=== PATIENT | male | born 1955 | race Caucasian/White ===

== ENCOUNTER 2020-10-08 09:53 | Day surgery (SDC) | payer OTHER, SELFPAY ==
[2020-10-03 11:03] VITALS: BMI 28.5
[2020-10-08 10:16] VITALS: BP 137/88; PULSE 80; RESP 16; TEMP 36.4; O2SAT 98
[2020-10-08 10:25] LABS: Glucose, Whole Blood 160 mg/dL (60-115)
[2020-10-08] MEDS: Lactated Ringers 1,000 ML 100 ML IVCONT (10:45)
--- NOTE | 2020-10-08 10:55 | HO.ANESPROP2 ---
HPI - Anesthesia Eval Consult details Narrative: 65yo male patient for colonoscopy FORMERLY [facility] Past Medical History Medical History CAD (coronary artery disease) Diabetic foot ulcer History of amputation of toe HTN (hypertension) Hyperlipidemia Nephrolithiasis Osteoarthritis PVD (peripheral vascular disease) Type II diabetes mellitus Family History Family history of problems with anesthesia: No Surgical History Surgical History History of cystoscopy History of lithotripsy Hx of colonoscopy History of Problems with Anesthesia: No Social History Social History Advance Directives: No Advance Directives Information Provided: No Advance Directives on File: No Recently lost weight without trying: No Eating poorly because of decreased appetite: No Nutrition Risks: No Nutritional Risk Meds Allergies Allergy/AdvReac Type Severity Reaction Status Date / Time sucralose Allergy Severe DISORIENTAT Verified 10/08/20 10:32 [From SPLENDA (SUCRALOSE)] ION Home Medications Medication Instructions Recorded Confirmed Last Taken Type Lantus U-100 Insulin 10/03/20 Unknown History Tylenol 10/03/20 10/03/20 Unknown History amlodipine 5 mg PO DAILY 10/03/20 10/03/20 Unknown History digestive enzymes (plant) [Lipase mg PO 10/03/20 Unknown History Concentrate-HP] glipizide 5 mg PO DAILY 10/03/20 10/03/20 Unknown History lisinopril 10 mg PO DAILY 10/03/20 10/03/20 Unknown History Exam Exam Date and Time: October 08, 2020 1055 Height,Weight and Vital Signs: Height 6 ft 1 in Weight 97.976 kg Last Vital Signs Temp 97.5 F 10/08/20 10:16 Pulse 80 10/08/20 10:16 Resp 16 10/08/20 10:16 BP 137/88 10/08/20 10:16 Pulse Ox 98 10/08/20 10:16 Pertinent Lab Results Pertinent Lab Results: Laboratory Tests 10/08/20 10:16 POC Glucose 160 H Assessment and Plan Assessment Anesthesia Assessment: Anesthesia Plan Discussed and Chart Reviewed Final Anesthetic Review NPO: Yes ASA Class: III Final Preanesthetic Review: No Changes in Pt Med Stat, Meds/Allgs Chart Reviewed, Consent Obtained/Reviewed and Anes Risks/Benef Reviewed Patient Risk: Intermediate Procedure Risk: Low Assessment/Block/Sedation in SS: Assess/Block/Sedation-SS Anesthetic Plan Anesthetic Plan: MAC: Disposition: Standard PACU
--- NOTE | 2020-10-08 10:58 | MHC.SHP ---
Pre-Procedural Eval Section B Chief Complaint: screening Details of Present Illness: screening Relevant Family History (Specify if Yes): No Relevant Social History: None Present Medications: see Short Stay Collaborative assessment Medical History: No relevant PMH (see h&p) History of Previous Operations: No relevant previous surgery (see h&p) Allergies: Allergies Allergy/AdvReac Type Severity Reaction Status Date / Time sucralose Allergy Severe DISORIENTAT Verified 10/08/20 10:32 [From SPLENDA (SUCRALOSE)] ION Review of Systems Sugical H&P ROS: Negative: Constitution, Cardiovascular, Respiratory, Neurological, Psychiatric, Hem-Onc, Allergic/Immunologic, Gastrointestinal, Genitourinary, Musculoskeletal, Integumentary, Endocrine and Eyes/Ears/Nose/Throat Exam Surgical H&P Exam: Normal: HEENT, Normal: Heart, Normal: Lungs, Normal: Extremities, Normal: Abdomen, Normal: Skin and Normal: Neurological Plan Diagnosis/Plan: Unchanged I have reviewed the history and physical and performed a pertinent physical examination on my patient. No changes have occurred unless specified.
--- NOTE | 2020-10-08 11:28 | P.CONAN_ITS ---
HPI - Anesthesia Eval Consult details Narrative: 65 yo male patient for colonoscopy FORMERLY [facility] Past Medical History Medical History CAD (coronary artery disease) Diabetic foot ulcer History of amputation of toe HTN (hypertension) Hyperlipidemia Nephrolithiasis Osteoarthritis PVD (peripheral vascular disease) Type II diabetes mellitus Family History Family history of problems with anesthesia: No Surgical History Surgical History History of cystoscopy History of lithotripsy Hx of colonoscopy History of Problems with Anesthesia: No Social History Social History Advance Directives: No Advance Directives Information Provided: No Advance Directives on File: No Recently lost weight without trying: No Eating poorly because of decreased appetite: No Nutrition Risks: No Nutritional Risk Meds Allergies Allergy/AdvReac Type Severity Reaction Status Date / Time sucralose Allergy Severe DISORIENTAT Verified 10/08/20 10:32 [From SPLENDA (SUCRALOSE)] ION Active Medications: Current Medications Generic Name Dose Route Start Last Admin Trade Name Freq PRN Reason Stop Dose Admin Lactated Ringer's 1,000 mls @ 100 mls/hr 10/08/20 11:00 10/08/20 10:45 Lr IVCONT 100 mls/hr .Q10H ANNA Administration Ondansetron HCl 4 mg 10/08/20 11:23 Ondansetron Hcl 4 Mg/2 Ml Vial IVPUSH ONCE PRN Nausea and Vomiting Home Medications Medication Instructions Recorded Confirmed Last Taken Type Lantus U-100 Insulin 10/03/20 Unknown History Tylenol 10/03/20 10/03/20 Unknown History amlodipine 5 mg PO DAILY 10/03/20 10/03/20 Unknown History digestive enzymes (plant) [Lipase mg PO 10/03/20 Unknown History Concentrate-HP] glipizide 5 mg PO DAILY 10/03/20 10/03/20 Unknown History lisinopril 10 mg PO DAILY 10/03/20 10/03/20 Unknown History Exam Exam Date and Time: October 08, 2020 1128 Height,Weight and Vital Signs: Height 6 ft 1 in Weight 97.976 kg Last Vital Signs Temp 97.5 F 10/08/20 10:16 Pulse 80 10/08/20 10:16 Resp 16 10/08/20 10:16 BP 137/88 10/08/20 10:16 Pulse Ox 98 10/08/20 10:16 Pertinent Lab Results Pertinent Lab Results: Laboratory Tests 10/08/20 10:16 POC Glucose 160 H Narrative Narrative: Denies recent cough, cold, fever Airway Mallampati Class: II TM Dist: >3cm Neck ROM: Full Loose/Missing/Broken Teeth: Yes (Some broken) Heart: RRR Lungs: ? wheeze Right posterior Assessment and Plan Assessment Anesthesia Assessment: Anesthesia Plan Discussed and Chart Reviewed Final Anesthetic Review NPO: Yes ASA Class: III Final Preanesthetic Review: No Changes in Pt Med Stat, Meds/Allgs Chart Reviewed, Consent Obtained/Reviewed and Anes Risks/Benef Reviewed Patient Risk: Intermediate Procedure Risk: Low Assessment/Block/Sedation in SS: Assess/Block/Sedation-SS Anesthetic Plan Anesthetic Plan: MAC: Disposition: Standard PACU
--- NOTE | 2020-10-08 11:33 | P.BOP_ITS ---
Brief Operative Note Date of Service: 10/08/20 Pre-op diagnosis: screening Post-op diagnosis: same (colon polyp) Procedure: colonosocpy Surgeon: Bertrand Kramer Anesthesia: MAC Was an [employer] used for this Procedure?: No Estimated blood loss (mL): 0 Pathology: other (polyp 80 cm) Condition: stable Disposition: PACU
[2020-10-08 11:36] VITALS: BP 110/71; PULSE 69; RESP 14; TEMP 36.2; O2SAT 96
[2020-10-08 11:51] VITALS: BP 142/89; PULSE 72; RESP 17; TEMP 36.2; O2SAT 98
--- NOTE | 2020-10-11 10:56 | OP_ITS ---
SURGEON: Bertrand Kramer MD INDICATIONS: Colon cancer screening. PREOPERATIVE DIAGNOSIS: POSTOPERATIVE DIAGNOSIS: PROCEDURE PERFORMED: Colonoscopy to the terminal ileum with snare polypectomy. ESTIMATED BLOOD LOSS: COMPLICATIONS: ANESTHESIA: ASSISTANTS: SPECIMENS: MEDICATIONS: Monitored anesthesia care. DESCRIPTION OF PROCEDURE: History and physical performed. The risks and benefits of the procedure were explained to the patient. Informed consent was obtained. The patient was placed in left lateral decubitus position. A digital rectal exam was performed and was found to be normal. The Olympus pediatric video colonoscope was introduced into the rectum and advanced to the cecum without difficulty. The cecum was identified by transillumination, palpation, and identification of ileocecal valve. Examination was performed and the scope was removed. He tolerated the procedure well and was taken to recovery area in stable condition. FINDINGS: The terminal ileum was normal. The visualized colonic mucosa was normal. The quality of the prep was good except in the sigmoid, where there was formed stool limiting the sensitivity examination for detection of small polyps. There was a prior polypectomy site identified in the rectosigmoid with no residual polypoid tissue. Retroflexed examination showed internal hemorrhoids. At 80 cm from the anal verge, was a 10 mm polyp, which was removed with a snare and recovered via suction. No other polyps were identified. IMPRESSION: Colon polyp. RECOMMENDATION: Follow up the biopsy results. MD KORINA Hendricks/JOI / [id number]
== END 2020-10-08 12:20 | disposition home or self-care (01) ==
PROVIDERS: PCP Physician Assistant Medical; Visit Provider Internal Medicine Gastroenterology
PROC: 0DJD8ZZ Inspection of Lower Intestinal Tract, Via Natural or Artificial Opening Endoscopic (ICD-10-PCS; CPT 45378; principal; 2020-10-08 11:10)
DX: Z12.11 Encounter for screening for malignant neoplasm of colon (principal); Z85.048 Personal history of other malignant neoplasm of rectum, rectosigmoid junction, and anus; D12.4 Benign neoplasm of descending colon; K64.8 Other hemorrhoids; I10 Essential (primary) hypertension; E11.9 Type 2 diabetes mellitus without complications; I73.9 Peripheral vascular disease, unspecified; Z79.4 Long term (current) use of insulin; Z79.899 Other long term (current) drug therapy
CPT/HCPCS: 45385; 82947; 88305